=== PATIENT | female | born 1960 | race Caucasian/White ===

== ENCOUNTER → 2023-07-07 14:41 | Outpatient (REF) | payer OTHER, SELFPAY | LOC: HWWDC 14:41 | PROVIDERS: ATTENDING PHYSICIAN Obstetrics & Gynecology Gynecology; FAMILY PHYSICIAN Physician Assistant Medical | DX: Z12.31 Encounter for screening mammogram for malignant neoplasm of breast (principal) | CPT/HCPCS: 77063; 77067 ==

== ENCOUNTER → 2023-10-20 15:53 | Outpatient (REF) | payer OTHER, SELFPAY | LOC: HWRAD 15:53 | PROVIDERS: ATTENDING PHYSICIAN Internal Medicine Cardiovascular Disease; FAMILY PHYSICIAN Physician Assistant Medical | DX: R06.02 Shortness of breath (principal); M54.9 Dorsalgia, unspecified; Z82.49 Family history of ischemic heart disease and other diseases of the circulatory system | CPT/HCPCS: 71046 ==

== ENCOUNTER → 2023-10-25 11:38 | Outpatient (REF) | payer OTHER, SELFPAY | LOC: DHCBC/DCA 11:38 | PROVIDERS: ATTENDING PHYSICIAN Internal Medicine Cardiovascular Disease; FAMILY PHYSICIAN Physician Assistant Medical | DX: R06.02 Shortness of breath (principal); Z82.49 Family history of ischemic heart disease and other diseases of the circulatory system | CPT/HCPCS: 78452; 93017; A9500 ==

== ENCOUNTER → 2023-11-07 06:40 | Outpatient (REF) | payer OTHER, SELFPAY | LOC: RSP 06:40 | PROVIDERS: ATTENDING PHYSICIAN Physician Assistant Medical | DX: R06.09 Other forms of dyspnea (principal) | CPT/HCPCS: 94727; 94729; 88738; 94010 ==

== ENCOUNTER → 2023-11-10 09:06 | Outpatient (REF) | payer OTHER, SELFPAY | LOC: HWRCS 09:06 | PROVIDERS: ATTENDING PHYSICIAN Internal Medicine Cardiovascular Disease; FAMILY PHYSICIAN Physician Assistant Medical | DX: R06.02 Shortness of breath (principal); M54.9 Dorsalgia, unspecified; Z82.49 Family history of ischemic heart disease and other diseases of the circulatory system | CPT/HCPCS: 93306 ==

== ENCOUNTER → 2024-07-22 13:57 | Outpatient (REF) | payer OTHER, SELFPAY | LOC: HWWDC 13:57 | PROVIDERS: ATTENDING PHYSICIAN Obstetrics & Gynecology Gynecology; FAMILY PHYSICIAN Physician Assistant Medical | DX: Z12.31 Encounter for screening mammogram for malignant neoplasm of breast (principal) | CPT/HCPCS: 77063; 77067 ==

== ENCOUNTER 2024-07-24 05:05 | Emergency (ER) | payer OTHER, SELFPAY ==
[2024-07-24 05:07] VITALS: BP 150/98
[2024-07-24 05:18] VITALS: BP 136/92
[2024-07-24 05:19] VITALS: BMI 34.1
[2024-07-24 06:00] VITALS: BP 149/89
--- NOTE | 2024-07-24 06:02 | ED.GENMED ---
Addendum entered and electronically signed by Quan Velasco MD 07/24/24 08:01:
Patient asking for pain management. Case reviewed. Clinically nontoxic. 2 days of right posterior scapular pain. Somewhat positional in nature. Worse with moving the arm or lying on her right side. No pleuritic pain no shortness of breath no
fever no abdominal pain no nausea or vomiting. Patient is nontoxic in her exam. She is warm and dry she is perfusing well. She is in no respiratory distress. She has some tenderness over the right scapula and points to this location. There is
no rash or erythema. She has no spinal tenderness. Old spinal scar. Abdomen is soft and nontender. No liver or spleen no rebound or guarding. She has good real estate rental agent. Good pulses to the arm. Interosseous intact.
Impression is nontraumatic scapular pain for days. Continuous. Not exertional. Cardiac workup unremarkable. CT scan pending. Clinically doubt PE or dissection and I see nothing unusual on CT but will be reviewed by radiology. Likely
musculoskeletal. Anti-inflammatories pain management and follow-up if the CT is stable
Original Note:
History of Present Illness
General
Chief Complaint: Extremity Pain (non-traumatic)
Source: patient
Exam Limitations: none
Time Seen by Provider: 07/24/24 05:32
Nursing documentation reviewed up to this point in time: agreed with
History of Present Illness
History of Present Illness:
Pleasant 63-year-old female presents to the emergency department with right-sided back pain, right under her right shoulder blade. She states that it is exacerbated by movement and position. She states that when she lies down the pain is worse.
She does report radiation down into her right arm. She has tried multiple different types of medications without relief. Patient denies any known shortness of breath. She has had many back surgeries in the past but denies any recent surgeries.
She denies periods of immobilization recently. Denies any calf tenderness. Reports no fever or chills.
Vital signs are stable. Patient has periods where her oxygenation drops to the mid 80s.
Nursing note reviewed. I agree with nursing documentation up to this point in time.
Home Meds and allergies reviewed.
NUMBER AND COMPLEXITY OF PROBLEMS ADDRESSED AT THE ENCOUNTER
� Chronic conditions affecting care: Chronic back pain with multiple back surgeries. Neck pain, anxiety
� Acute Exacerbation and/or Progression of Chronic Illness: Exacerbation back pain
� Differential Diagnosis includes: Musculoskeletal pain which is most likely, pulmonary embolus, pneumonia, gallbladder disease, reflux
Negative Woods sign making gallbladder disease less likely. Awaiting lab work
No reported shortness of breath and pain is not influenced by deep breathing making pulmonary embolus less likely- PE study ordered
No fever or white blood cell count-pneumonia to be ruled out by imaging
AMOUNT AND/OR COMPLEXITY OF DATA TO BE REVIEWED AND ANALYZED
I performed an independent evaluation of the following and my interpretation is:
EKG: EKG shows normal sinus rhythm rate 80 with normal intervals, normal axis. No evidence of acute ischemia present. When compared with previous EKG dated October 05, 2022, similar morphology is noted.
Pulse Ox: Not Hypoxic
Nitrator Operator: Sinus Rhythm
CT:
X-rays:
Ultrasound:
Laboratory Studies: 4.7 WBC
Other:
Review of other/old records: Chest x-ray from 10/20/2023 shows no acute cardiopulmonary process
Clinical information was obtained by an independent historian:
Prescriptions/Medications Considered but not given:
Further testing considered but not performed:
RISK OF COMPLICATIONS AND/OR MORBIDITY OR MORTALITY OF PATIENT MANAGEMENT
Social determinants of health affecting care: Good Social Support, good follow-up
Discussion with other providers:
Escalation of care including admission/observation vs risk of discharge considered:
CRITICAL CARE NOTE:
Total Time (exclusive of procedures):
Update:
Past History
Past History
ED Past Medical History: Psychiatric (Anxiety)
ED Past Surgical History: Orthopedic
Social History
Tobacco: Non-smoker
Alcohol: None
Living: with family
Review of Systems
Review of Systems
Allergies reviewed?: Yes
All Other Systems: ROS reviewed and negative except as documented in HPI and ROS
Constitutional: Reports no symptoms
EENT: Reports no symptoms
Respiratory: Reports no symptoms
Cardiac: Reports no symptoms
ABD/GI: Reports no symptoms
: Reports no symptoms
Musculoskeletal: Reports back pain
Skin: Reports no symptoms
Neurological: Reports no symptoms
Endocrine: Reports no symptoms
Hematologic/Lymphatic: Reports no symptoms
Psychiatric: Reports no symptoms
Phy Exam
General Physical Exam
General Presentation: well appearing and no apparent distress
General Skin: warm and dry
General Habitus: normal
General Mental: alert
General Hydration: appears well hydrated
ENT Exam
ENT Exam: EOMI, pharynx normal, neck supple and normocephalic
Eye Exam
Eye Exam: PERRL, cornea clear and conjunctiva normal
Cardiovascular Exam
Cardiovascular Exam: regular rate/rhythm, no edema, no murmur and normal peripheral pulses
Pulmonary Exam
Pulmonary Exam: lungs clear, no respiratory distress, no rales, no crackles, no rhonchi, no stridor, no wheezing and no cough
Gastrointestinal Exam
Gastrointestinal Exam: normal bowel sounds, non tender, soft, no organomegaly, no pulsatile mass and non distended
Neurological Exam
Neurological Exam: alert, oriented x3, no motor deficits and speech normal
Musculoskeletal Exam
Musculoskeletal Exam: full ROM and no edema
Skin Exam
Skin Exam: normal color, warm/dry, no rash and no petechia
Psychiatric Exam
Psychiatric Exam: normal mood/affect
Course
Orders/Labs/Results
Orders:
Orders
07/24/24 06:01
Electrocardiogram (*1) Stat
Reason for Study: Other
Other Reason for Exam: chest pain
CT Chest PE Study Urgent
Comment:
Reason For Exam: right sided back pain, exacer by position,hypoxia
EKG- Treatment ONCE
07/24/24 06:10
Complete Blood Count/With Diff Urgent
Comprehensive Metabolic Panel Urgent
Magnesium Urgent
NT-proBNP Urgent
PTT Urgent
Prothrombin Time Urgent
Troponin I Urgent
07/24/24 06:28
Add On- LAB Urgent
Tests Added?: Lipase
Abnormal Lab Results
07/24/24
06:10
WBC 4.7 L 10^3/uL
(4.8-10.8)
RBC 3.78 L 10^6/uL
(4.20-5.40)
Hct 35.8 L %
(37.0-47.0)
MCH 32.8 H pg
(27.0-31.0)
07/24/24 06:10
Vital Signs
Initial and Last Documented VS:
Initial Vital Signs
Temp Pulse Resp BP Pulse Ox
98.2 F 80 20 150/98 96
07/24/24 05:07 07/24/24 05:07 07/24/24 05:07 07/24/24 05:07 07/24/24 05:07
Last Documented Vital Signs
Temp Pulse Resp BP Pulse Ox
98.2 F 80 20 149/89 91
07/24/24 05:07 07/24/24 05:07 07/24/24 05:07 07/24/24 06:00 07/24/24 06:30
*Pulse Oximetry
Patient hypoxic: yes
*Critical Care Note
Total Time (30-74mins, 75-104mins- exclusive of procedures): Not Applicable
ED Attending Note
-
Portions of this chart may have been created with voice recognition software.� Occasional wrong word or��sound alike� substitutions may have occurred due to the inherent limitations of voice recognition software.
Discharge Plan
Departure
Prescriptions:
No Action
acetaminophen [Tylenol Extra Strength] 500 MG tablet
500 mg PO PRN PRN (Reason: pain)
alprazolam 1 MG tablet
1 mg PO PRN PRN (Reason: anxiety)
buspirone 10 MG tablet
15 mg PO BID
naproxen sodium [Aleve] 220 MG tablet
2 tab PO PRN PRN (Reason: pain)
aripiprazole 2 MG tablet
2 mg PO DAILY
Referrals:
Edna Soriano PA [Family Provider] -
Interventions
Interventions:
*Risk Screen - Suicide Last Done: 07/24/24 05:07
*General Assessment Last Done: 07/24/24 05:19
*Neglect/Abuse Screening Last Done: 07/24/24 05:07
*ED- Fall Risk Assessment Last Done: 07/24/24 05:19
*ED COVID-19 Vaccine History Last Done: 07/24/24 05:19
ED-Skin Assessment Last Done: 07/24/24 05:19
ED-Peripheral Vascular Assessment Last Done: 07/24/24 05:19
ED-Musculoskeletal Assessment Last Done: 07/24/24 05:19
Discharge Date and Time
Print Language: GREEK
[2024-07-24 06:32] LABS: % Basophils 0.4 % (0-2); % Eosinophils 1.3 % (0-6); % Immature Granulocytes 0.2 % (0-0.5); % Lymphocytes 30.7 % (20.5-51.1); % Monocytes 8.5 % (1.7-9.3); % Neutrophils 58.9 % (42.2-75.2); Absolute Eosinophils 0.1 10^3/uL (0-0.7); Absolute Lymphocytes 1.4 10^3/uL (1.2-3.4); Absolute Monocytes 0.4 10^3/uL (0.1-0.6); Absolute Neutrophils 2.8 10^3/uL (1.4-6.5); Hematocrit 35.8 % (37.0-47.0); Hemoglobin 12.4 g/dL (12.0-16.0); Mean Corp Hgb Conc. 34.6 g/dL (33.0-37.0); Mean Corpuscular Hgb 32.8 pg (27.0-31.0); Mean Corpuscular Volume 94.7 fL (81.0-99.0); Nucleated Red Blood Cells % 0 %; Platelet Count 199 10^3/uL (130-400); Red Blood Cell Count 3.78 10^6/uL (4.20-5.40); Red Cell Dist. Width 12.7 % (11.5-14.5); White Blood Cell Count 4.7 10^3/uL (4.8-10.8)
[2024-07-24 06:50] LABS: INR 0.99; PT 13.4 Sec (11.4-14.6)
[2024-07-24 06:51] LABS: APTT 27.5 Sec (23.4-35.0)
[2024-07-24 06:55] LABS: ALT (SGPT) 33 U/L (0-35); AST (SGOT) 27 U/L (14-36); Albumin 4.2 g/dl (3.5-5.0); Alkaline Phosphatase 92 U/L (38-126); Blood Urea Nitrogen 19 mg/dl (7-17); Calcium 9.6 mg/dl (8.4-10.2); Carbon Dioxide 26 mmol/L (22-30); Chloride 103 mmol/L (98-107); Estimated Creatinine Clearance 102 ml/min; Glucose 118 mg/dl (70-99); Magnesium 2.2 mg/dl (1.6-2.3); Potassium 4.2 mmol/L (3.5-5.1); Sodium 136 mmol/L (135-145); Total Bilirubin 0.7 mg/dl (0.2-1.3); Total Protein 6.9 g/dl (6.3-8.2); eGFR > 60.00
[2024-07-24 07:00] VITALS: BP 143/100
[2024-07-24 07:01] LABS: NT-proBNP 21.1 pg/ml; Troponin I < 0.012 ng/ml
[2024-07-24] MEDS: TORADOL 15 MG IV (08:11)
[2024-07-24 08:16] VITALS: BP 131/95
[2024-07-24 09:00] VITALS: BP 136/89
== END 2024-07-24 10:10 | disposition home or self-care (01) ==
LOC: EMR 05:05
PROVIDERS: EMERGENCY PHYSICIAN Student in an Organized Health Care Education/Training Program; FAMILY PHYSICIAN Physician Assistant Medical
DX: M54.9 Dorsalgia, unspecified (principal); G89.29 Other chronic pain; M25.511 Pain in right shoulder; M54.2 Cervicalgia; M79.601 Pain in right arm; F41.9 Anxiety disorder, unspecified
CPT/HCPCS: 99284; 96374; 71275; 80053; 83735; 83880; 84484; 85025; 85610; 85730; 93005; Q9967